=== PATIENT | male | born 1965 | race Two or more races ===

== ENCOUNTER 2024-11-27 12:17 | Emergency (ER) | payer OTHER ==
[~2024-11-27] VITALS: Ht 170.2 cm; Wt 93.0 kg
[2024-11-27] MEDS ORDERED: KETOROLAC TROMETHAMINE INJ 30 MG/ML VIAL ONE (13:17)
[2024-11-27] MEDS: KETOROLAC TROMETHAMINE 15 MG/ML VIAL IM ONE (13:24)
[2024-11-27] MEDS ORDERED: ACETAMINOPHEN ES 500 MG TABLET ONE (14:37)
[2024-11-27] MEDS ORDERED: IBUP-1490 PO (14:43)
[2024-11-27] MEDS: ACETAMINOPHEN ES 500 MG TABLET PO ONE (14:44)
[2024-11-27 16:58] VITALS: BP 128/80; TEMP 98.5; O2SAT 96
== END 2024-11-27 16:59 | disposition home or self-care (01) ==
LOC: ER 12:27
DX: M25.512 Pain in left shoulder (principal); Z60.2 Problems related to living alone; V86.56XA Driver of dirt bike or motor/cross bike injured in nontraffic accident, initial encounter; Y93.89 Activity, other specified; Y92.89 Other specified places as the place of occurrence of the external cause; Y99.8 Other external cause status
CPT/HCPCS: 99283; 96372; 73030; J1885